=== PATIENT | male | born 1965 | race Caucasian/White ===

== ENCOUNTER 2018-05-19 15:06 | Emergency (ER) | payer OTHER ==
[~2018-05-19] VITALS: Ht 175.3 cm; Wt 88.5 kg
[2018-05-19] MEDS ORDERED: KETOROLAC TROMETH 30 MG/ML 1ML VIAL IV ONE (15:45)
[2018-05-19] MEDS ORDERED: LIDOCAINE 2% (LOCAL ANESTH.) PF 5ml SDV ONE (17:16)
[2018-05-19 17:30] VITALS: BP 166/89
== END 2018-05-19 17:46 | disposition short-term general hospital (02) ==
LOC: EDBD 15:06 → ER 15:12
DX: S22.41XA Multiple fractures of ribs, right side, initial encounter for closed fracture (principal); J94.2 Hemothorax; J93.9 Pneumothorax, unspecified; V23.4XXA Motorcycle driver injured in collision with car, pick-up truck or van in traffic accident, initial encounter; Y93.89 Activity, other specified; Y99.8 Other external cause status; Y92.410 Unspecified street and highway as the place of occurrence of the external cause
CPT/HCPCS: 70450; 71250; 72125; 72128; 72131; 73030; 99285; J1885; J2001